=== PATIENT | male | born 1970 | race Caucasian/White ===

== ENCOUNTER 2018-02-01 08:07 | Emergency (ER) | payer OTHER ==
[~2018-02-01] VITALS: Ht 160 cm; Wt 72.1 kg
[2018-02-01 08:08] VITALS: Ht 160 cm; Wt 72.1 kg
[2018-02-01 08:45] VITALS: BP 151/82
== END 2018-02-01 08:45 | disposition other institution (70) ==
LOC: ED 08:07
DX: Z02.89 Encounter for other administrative examinations (principal)

== ENCOUNTER 2020-03-27 02:51 | Emergency (ER) | payer OTHER | END 2020-03-27 03:36 | disposition other institution (70) | LOC: ED 02:51 | DX: Z02.89 Encounter for other administrative examinations (principal) ==

== ENCOUNTER 2020-03-27 02:51 | Emergency (ER) | payer SELFPAY ==
[~2020-03-27] VITALS: Ht 175.3 cm; Wt 81.6 kg
[2020-03-27 02:58] VITALS: BP 167/107; Ht 175.3 cm; Wt 81.6 kg
== END 2020-03-27 03:36 | disposition other institution (70) ==
LOC: ED 02:51
DX: S60.512A Abrasion of left hand, initial encounter (principal); I10 Essential (primary) hypertension; X58.XXXA Exposure to other specified factors, initial encounter; Y93.89 Activity, other specified; Y92.89 Other specified places as the place of occurrence of the external cause; Y99.8 Other external cause status